=== PATIENT | female | born 1965 | race Caucasian/White ===

== ENCOUNTER 2018-09-01 06:25 | Day surgery (SDC) | payer OTHER ==
[~2018-09-01 06:25] MED LIST: PAXIL20 MG PO
== END 2018-09-01 16:30 | disposition home or self-care (01) ==
LOC: CIR.AMB 06:25
DX: M19.042 Primary osteoarthritis, left hand (principal)
CPT/HCPCS: 26860; 26861 ×2; 26536; C1776